=== PATIENT | female | born 1990 | race Two or more races ===

== ENCOUNTER 2019-12-26 01:10 | Outpatient (CLI) | payer OTHER, SELFPAY ==
[2019-12-26 19:18] LABS: SARS-CoV-2 RNA PCR Positive
== END 2019-12-26 01:11 | disposition home or self-care (01) ==
LOC: ANHCOVIDDT 01:10
PROVIDERS: Visit Provider Obstetrics & Gynecology
DX: Z01.812 Encounter for preprocedural laboratory examination (principal); U07.1 COVID-19
CPT/HCPCS: 87635; C9803; U0003

== ENCOUNTER 2020-02-06 01:24 | Outpatient (CLI) | payer MEDICAID, SELFPAY ==
[2020-02-06 16:30] LABS: SARS-CoV-2 RNA PCR Negative
== END 2020-02-06 01:25 | disposition home or self-care (01) ==
LOC: ANHCOVIDDT 01:24
PROVIDERS: Visit Provider Obstetrics & Gynecology
DX: Z01.812 Encounter for preprocedural laboratory examination (principal); Z20.828 Contact with and (suspected) exposure to other viral communicable diseases
CPT/HCPCS: 87635; C9803; U0003

== ENCOUNTER 2020-02-09 01:37 | Day surgery (SDC) | payer MEDICAID, SELFPAY ==
[2019-12-15 12:14] VITALS: BMI 33.0
--- NOTE | 2019-12-26 08:33 | PM.IMHP ---
H&P: HPI History of Present Illness Date/Time: 12/26/19 08:33 Chief complaint: menorrhaghia Narrative: Aimee Ward is a 29 year old female with periods Q28 days lasting 14-16 days, 7-10 days being very heavy. She has had anemia, under control with iron. She has tried multiple OCPs without help and she gets hives while taking them. She is s/p removal of tubes/Essure devices and is done bearing children Review of Systems Review of Systems: All systems reviewed & are unremarkable except as noted in HPI and below PMFSH Past Medical History Medical History Anemia Anxiety Asthma Depression Encounter for removal of Essure Vaginal delivery X4 12/13/10 Full Term Male 6lbs 4oz 04/17/13 Full term Female 7lbs 1oz 03/12/15 Full term Female 7lbs 4oz 04/28/16 Full term Female 7lbs 1oz Family History Family History Grandparent Diabetes mellitus Social History Social History Smoking status: Never smoker Alcohol intake: current Substance use: never Spiritual care concerns: No Meds Home Medications and Allergies Home Medications Medication Instructions Recorded Confirmed Type escitalopram oxalate 10 mg tablet 10 mg PO DAILY 12/11/19 12/15/19 History hydroxyzine HCl 10 mg tablet 10 mg PO TID PRN 12/11/19 12/15/19 History multivitamin 1 tablet PO DAILY 12/15/19 12/15/19 History Allergies Allergy/AdvReac Type Severity Reaction Status Date / Time nickel Allergy INFLAMMATIO Verified 12/15/19 12:21 N Exam Const: General: no acute distress Resp: Auscultation: clear to auscultation bilaterally Cardio: Rate: regular rate Rhythm: regular rhythm GI: Inspection: non-distended GI Palp: Yes Soft to palpation and No Tenderness to palpation present (GI) : External Female Exam: normal external appearance Bimanual exam- vagina & uterus: normal bimanual exam, uterine size normal, uterine shape normal and non-tender Bimanual Exam- Adnexa, other: normal adnexae, no masses and No adnexal tenderness Extrem: General: no edema Psych: Mental Status: mental status grossly normal Assessment and Plan Assessment and plan (1) Menorrhagia: Code(s): N92.0 - Excessive and frequent menstruation with regular cycle Status: Acute Assessment and Plan: After discussing options, she opted and signed consent for D&C, hysteroscopy, and endometrial ablation. She wishes to proceed.
[2020-01-28 12:02] VITALS: BMI 33.0
--- NOTE | 2020-02-09 08:19 | PM.IMHP ---
H&P: HPI History of Present Illness Date/Time: 02/09/20 08:19 Chief complaint: menorrhaghia Narrative: Aimee Ward is a 30 year old female with periods coming monthly lasting 14-16 days with 7-10 days being heavy. She has anemia treated with iron. She has tried multiple brands of OCPs and gets hives with them. She is s/p removal of tubes and Essure devices and is done bearing children. Review of Systems Review of Systems: All systems reviewed & are unremarkable except as noted in HPI and below PMFSH Past Medical History Medical History Anemia Anxiety Asthma Depression Encounter for removal of Essure Vaginal delivery X4 12/13/10 Full Term Male 6lbs 4oz 04/17/13 Full term Female 7lbs 1oz 03/12/15 Full term Female 7lbs 4oz 04/28/16 Full term Female 7lbs 1oz Family History Family History Grandparent Diabetes mellitus Social History Social History Smoking status: Never smoker Alcohol intake: current Substance use: never Spiritual care concerns: No Meds Home Medications and Allergies Home Medications Medication Instructions Recorded Confirmed Type escitalopram oxalate 10 mg tablet 10 mg PO DAILY 12/11/19 01/28/20 History hydroxyzine HCl 10 mg tablet 10 mg PO TID PRN 12/11/19 01/28/20 History multivitamin 1 tablet PO DAILY 12/15/19 01/28/20 History Allergies Allergy/AdvReac Type Severity Reaction Status Date / Time nickel Allergy INFLAMMATIO Verified 01/28/20 12:06 N Exam Const: General: no acute distress Resp: Auscultation: clear to auscultation bilaterally Cardio: Rate: regular rate Rhythm: regular rhythm GI: Inspection: non-distended GI Palp: Yes Soft to palpation and No Tenderness to palpation present (GI) : Other: Uterus normal size, nontender, mobil smooth; adnexa nontender with no palpable masses Psych: Mental Status: mental status grossly normal Assessment and Plan Assessment and plan (1) Menorrhagia: Code(s): N92.0 - Excessive and frequent menstruation with regular cycle Status: Acute Assessment and Plan: She opts and signed consent for D&C, hysteroscopy, and Laine endometrial ablation after risks, benefits, complications, and alternatives discussed. She expressed understanding and wishes to proceed.
--- NOTE | 2020-02-09 11:24 | WPDANESEPPF ---
Anes - Initial Pre Proc Eval Procedure: Operation Date: 02/09/20 12:00 Proposed Procedures p Hysteroscopy, Dilation and Curettage with Laine Ablation - Tasneem Castillo MD Date/Time: 02/09/20 11:24 Surgeon: Tasneem Castillo MD Pre Op Diagnosis: menorrhaghia Patient Data Age: 30 Gender: F Height: 5 ft 5 in Weight: 90.26 kg Allergies Allergy/AdvReac Type Severity Reaction Status Date / Time nickel Allergy INFLAMMATIO Verified 01/28/20 12:06 N Home Medications Medication Instructions Recorded Confirmed Type escitalopram oxalate 10 mg tablet 10 mg PO DAILY 12/11/19 01/28/20 History hydroxyzine HCl 10 mg tablet 10 mg PO TID PRN 12/11/19 01/28/20 History multivitamin 1 tablet PO DAILY 12/15/19 01/28/20 History Patient hx anesthesia problems: none Family hx anesthesia problems: none PMFSH Past Medical History Medical History Anemia Anxiety Asthma Depression Encounter for removal of Essure Vaginal delivery X4 12/13/10 Full Term Male 6lbs 4oz 04/17/13 Full term Female 7lbs 1oz 03/12/15 Full term Female 7lbs 4oz 04/28/16 Full term Female 7lbs 1oz Family History Family History Grandparent Diabetes mellitus Social History Social History Smoking status: Never smoker Alcohol intake: current Substance use: never Spiritual care concerns: No Anes - Eval Final PreProcedure Day of Procedure 02/09/20 11:24 Patient weight: obese Heart: regular rate and rhythm Lungs: clear to auscultation Airway: Mallampati scale class 1 Neurological: alert and oriented Last oral intake: >/= 8 hours ASA classification: II Emergent: no Anesthetic plan: proceed Anesthesia type and monitoring: general GIVS and standard monitoring Informed Consent: The patient's anesthetic plan and its attendant risks and benefits were discussed with the patient/family/POA. Questions were solicited and answers provided to the satisfaction of the patient/family/POA.
--- NOTE | 2020-02-09 11:57 | SUR.PREOP ---
CALL RECEIVED FROM DR PHILLIPS OFFICE, CASE TO BE CANCELLED TODAY DUE TO INSURANCE. PT WAS ABLE TO SPEAK WITH OFFICE STAFF. PT HAS DRESSED AND LEFT. CASE IS CANCELLED
== END 2020-02-09 11:50 | disposition home or self-care (01) ==
PROVIDERS: PCP Family Medicine; Visit Provider Obstetrics & Gynecology
PROC: 0U5B8ZZ Destruction of Endometrium, Via Natural or Artificial Opening Endoscopic (ICD-10-PCS; CPT 58563; principal; 2020-02-09 12:00)
DX: N92.0 Excessive and frequent menstruation with regular cycle (principal); Z53.8 Procedure and treatment not carried out for other reasons
CPT/HCPCS: 99211; G0463

== ENCOUNTER 2020-02-20 02:05 | Outpatient (CLI) | payer MEDICAID, SELFPAY ==
[2020-02-20 18:25] LABS: SARS-CoV-2 RNA PCR Negative
== END 2020-02-20 02:06 | disposition home or self-care (01) ==
LOC: ANHCOVIDDT 02:05
PROVIDERS: Visit Provider Obstetrics & Gynecology
DX: Z01.812 Encounter for preprocedural laboratory examination (principal); Z20.828 Contact with and (suspected) exposure to other viral communicable diseases
CPT/HCPCS: 87635; C9803; U0003

== ENCOUNTER 2020-02-23 03:12 | Day surgery (SDC) | payer MEDICAID, SELFPAY ==
[2020-02-17 11:39] VITALS: BMI 33.0
--- NOTE | 2020-02-23 08:11 | PM.IMHP ---
H&P: HPI History of Present Illness Date/Time: 02/23/20 08:11 Chief complaint: Menorrhagia Narrative: Aimee Ward is a 30 year old female with monthly periods lasting 14-16 days, 7-10 of those days heavy. She has tried several types of OCPS and gets hives while taking them. She has anemia which is treated with iron. She is done having children and is s/p removal of both fallopian tubes and Essure devices. Review of Systems Review of Systems: All systems reviewed & are unremarkable except as noted in HPI and below PMFSH Past Medical History Medical History Anemia Anxiety Asthma Depression Encounter for removal of Essure Vaginal delivery X4 12/13/10 Full Term Male 6lbs 4oz 04/17/13 Full term Female 7lbs 1oz 03/12/15 Full term Female 7lbs 4oz 04/28/16 Full term Female 7lbs 1oz Family History Family History Grandparent Diabetes mellitus Social History Social History Smoking status: Never smoker Alcohol intake: current Substance use: never Spiritual care concerns: No Meds Home Medications and Allergies Home Medications Medication Instructions Recorded Confirmed Type escitalopram oxalate 10 mg tablet 10 mg PO DAILY 12/11/19 02/17/20 History hydroxyzine HCl 10 mg tablet 10 mg PO TID PRN 12/11/19 02/17/20 History multivitamin 1 tablet PO DAILY 12/15/19 02/17/20 History Allergies Allergy/AdvReac Type Severity Reaction Status Date / Time nickel Allergy INFLAMMATIO Verified 02/17/20 11:40 N Exam Const: General: no acute distress, well developed, alert, awake and Physically active Resp: Auscultation: clear to auscultation bilaterally Cardio: Rate: regular rate Rhythm: regular rhythm GI: Inspection: non-distended GI Palp: Yes Soft to palpation and No Tenderness to palpation present (GI) : Bimanual exam- vagina & uterus: normal bimanual exam, uterine size normal, uterine mobility normal, uterine shape normal, soft and nontender Bimanual Exam- Adnexa, other: No adnexal tenderness and no masses noted Extrem: General: no calf tenderness and no edema Psych: Mental Status: mental status grossly normal Assessment and Plan Assessment and plan (1) Menorrhagia: Code(s): N92.0 - Excessive and frequent menstruation with regular cycle Status: Acute Additional Plan She opted and signed consent for D&C, hysteroscopy, and endometrial ablation after risks, benefits, complications, and alternatives discussed. She wishes to proceed
[2020-02-23] MEDS: LACTATED RINGERS 1,000 ML 30 ML IV CONT (10:19)
[2020-02-23] MEDS: ACETAMINOPHEN 500 MG TABLET 1000 MG PO (10:20)
[2020-02-23 10:31] VITALS: BP 119/80; PULSE 63; RESP 18; TEMP 36.3; O2SAT 98
--- NOTE | 2020-02-23 11:10 | WPDANESEPPF ---
Anes - Initial Pre Proc Eval Procedure: Operation Date: 02/23/20 12:00 Proposed Procedures p Hysteroscopy Dilation and Curettage With Laine Ablation - Tasneem Castillo MD Date/Time: 02/23/20 11:10 Surgeon: Tasneem Castillo MD Pre Op Diagnosis: Menorrhagia Patient Data Age: 30 Gender: F Height: 5 ft 5 in Weight: 88.3 kg Last Vital Signs Temp 97.4 F L 02/23/20 10:31 Pulse 63 02/23/20 10:31 Resp 18 02/23/20 10:31 BP 119/80 02/23/20 10:31 Pulse Ox 98 02/23/20 10:31 Allergies Allergy/AdvReac Type Severity Reaction Status Date / Time nickel Allergy INFLAMMATIO Verified 02/23/20 10:25 N Home Medications Medication Instructions Recorded Confirmed Type escitalopram oxalate 10 mg tablet 10 mg PO DAILY 12/11/19 02/23/20 History hydroxyzine HCl 10 mg tablet 10 mg PO TID PRN 12/11/19 02/23/20 History multivitamin 1 tablet PO DAILY 12/15/19 02/23/20 History Patient hx anesthesia problems: none Family hx anesthesia problems: none PMFSH Past Medical History Medical History Anemia Anxiety Asthma Depression Encounter for removal of Essure Vaginal delivery X4 12/13/10 Full Term Male 6lbs 4oz 04/17/13 Full term Female 7lbs 1oz 03/12/15 Full term Female 7lbs 4oz 04/28/16 Full term Female 7lbs 1oz Family History Family History Grandparent Diabetes mellitus Social History Social History Smoking status: Never smoker Alcohol intake: current Substance use: never Spiritual care concerns: No Anes - Eval Final PreProcedure Day of Procedure 02/23/20 11:10 Patient weight: overweight Heart: regular rate and rhythm Lungs: clear to auscultation Airway: Mallampati scale class 1 Neurological: alert and oriented Last oral intake: >/= 8 hours ASA classification: II Emergent: no Anesthetic plan: proceed Anesthesia type and monitoring: general GIVS and standard monitoring Informed Consent: The patient's anesthetic plan and its attendant risks and benefits were discussed with the patient/family/POA. Questions were solicited and answers provided to the satisfaction of the patient/family/POA.
--- NOTE | 2020-02-23 11:33 | WPDHPUPDATE1 ---
History and Physical Update Update Date/Time: 02/23/20 11:33 History and Physical has been reviewed, including an updated exam of the patient. There are NO changes in the patient's condition. Risks, benefits, and alternatives have been discussed and questions answered. Patient agrees to proceed with procedure.
--- NOTE | 2020-02-23 11:53 | P.OP_ITS ---
Procedure Note - Detailed Date of procedure: 02/23/20 Pre-op diagnosis: Menorrhagia Post-op diagnosis: same Procedure performed: D&C, hysteroscopy, Laine endometrial ablation Description of procedure: She was taken to the operating room where she was sedated and placed in the dorsal lithotomy position. A speculum was placed in the vagina, and the anterior lip of the cervix was grasped with a single-tooth tenaculum. The uterus was sounded to 8 cm. The cervix was dilated to allow passage of the hysteroscope, which revealed normal intrauterine anatomy with both tubal ostia identified. A sharp curettage was then performed, and the cu rettings were sent for pathologic evaluation. A 8. Hegar dilator was used to measure the endocervical canal at 3 cm, yielding an entire cavity length of 5 cm. The minora device was introduced. The cavity assessment passed the cycle ran for 1 minutes and 41 seconds. There was then an error message. The device was removed. The [facility] account services representative, whose name is Dedrick, was called and asked advice about what to do in this situation. I looked inside the endoemtrial cavity with the hysteroscope, which revealed an excellent appearing ablation and no visible perforation. Dedrick advised two options: Either using a new Laine device, which would complete the cycle starting at 19 seconds; or quitting the procedure at this point. Since the ablation looked excellent on hysteroscopy and the cycle had ran for the majority of the 2 minutes, decision was made to not perform a 2nd ablation with a new device. The tenaculum was removed from the cervix. Both tenaculum sites were bleeding. Pressure was held with ring forceps and Allis clamp until excellent hemostasis was assured. The speculum was then removed from the vagina. She tolerated the procedure well. Sponge, lap, and instrument counts were correct x2. She was taken to the recovery room in stable condition. Anesthesia: MAC Surgeon: Tasneem Castillo MD Estimated blood loss (mL): 10 Drains: No Packing: No Pathology: yes Complications: No immediate complications Condition: stable Disposition: PACU Findings: Normal endometrial cavity
[2020-02-23] MEDS: KETOROLAC 30 MG/ML VIAL (*BKC) IV PUSH (11:57)
[2020-02-23 12:23] VITALS: BP 103/64; PULSE 92; RESP 14; O2SAT 99
[2020-02-23 12:50] VITALS: BP 102/70; PULSE 100; RESP 20
[2020-02-23 13:10] VITALS: BP 101/60; PULSE 90; RESP 12
== END 2020-02-23 13:16 | disposition home or self-care (01) ==
PROVIDERS: PCP Family Medicine; Visit Provider Obstetrics & Gynecology
PROC: 0U5B8ZZ Destruction of Endometrium, Via Natural or Artificial Opening Endoscopic (ICD-10-PCS; CPT 58563; principal; 2020-02-23 12:00)
DX: N92.0 Excessive and frequent menstruation with regular cycle (principal); N85.8 Other specified noninflammatory disorders of uterus; D64.9 Anemia, unspecified; J45.909 Unspecified asthma, uncomplicated; F41.8 Other specified anxiety disorders
CPT/HCPCS: 58563; 88305; A9270; J1885; J2250; J2704; J3010; J7030; J7120